=== PATIENT | male | born 1980 | race Caucasian/White ===

== ENCOUNTER 2017-05-04 19:48 | Inpatient (IN) | payer SELFPAY ==
[~2017-05-04] VITALS: Ht 172.7 cm; Wt 126.0 kg
--- NOTE | ~2017-05-04 | HP ---
PATIENT'S NAME: SALVATORE PEMBERTON [facility] AGE: 36 Y [address] ROOM: [place] [address] LOCATION: [facility] [place] ADMIT DATE: 05/04/2017 History & Physical DISCHARGE DATE: FAMILY PHYSICIAN: PHYSICIAN, NO ATTENDING PHYSICIAN: Jesica ANGULO (Wes) DATE OF SERVICE: 05/04/2017 CHIEF COMPLAINT: Left scrotal pain. HISTORY OF PRESENT ILLNESS: Salvatore is a very pleasant 36-year-old gentleman who has had a known left inguinal hernia for quite sometime. It is normally easily reducible with rest and mild pressure, but as of last night, he had sudden onset of pain in that left scrotum and has worsened since that time. The size of his hernia had doubled in size and he was not able to reduce it with his usual maneuvers, he went to outside hospital, he was found to have an incarcerated hernia, and was sent here for further management here. He has already gotten a couple of rounds of pain medications at the outside hospital and he rate his pain at 2/10, but it was much more severe initially. He had a bowel movement yesterday and has been passing flatus easily today. He was able to pee at the outside facility. He denies any associated nausea or vomiting. He denies any previous episodes of incarceration. He denies any recent travel change, dietary habits, or sick contacts. PAST MEDICAL HISTORY: He denies any cardiac, pulmonary, hepatic, renal disease or dysfunction, or history of blood clots or DVTs. He does admit to a previous laparoscopic cholecystectomy and a left shoulder surgery. ALLERGIES: NO KNOWN DRUG ALLERGIES. MEDICATIONS: He takes no chronic medications. FAMILY HISTORY: Noncontributory. SOCIAL HISTORY: He denies tobacco, alcohol use, or abuse. He works in the [employer] and is and his accompanies him here today. REVIEW OF SYSTEMS: PATIENT'S NAME: SALVATORE PEMBERTON [facility] AGE: 36 Y [address] ROOM: [place] [address] LOCATION: [facility] [place] ADMIT DATE: 05/04/2017 History & Physical DISCHARGE DATE: FAMILY PHYSICIAN: PHYSICIAN, NO ATTENDING PHYSICIAN: Jesica ANGULO (Wes) A full 10-point review of systems was discussed with the patient and was negative except for as discussed above. Specifically, he denies any chest pain, shortness of breath, skin lesions, or rashes. PHYSICAL EXAMINATION: GENERAL: A 36-year-old gentleman in no apparent distress. Alert and oriented x3. VITAL SIGNS: Afebrile. Vital signs stable. HEENT: Sclerae anicteric. NECK: Supple. HEART: Rate and rhythm is regular. Breathing is nonlabored. ABDOMEN: Soft, nontender, and nondistended. His left scrotum is quite enlarged and it is tender to deep palpation may perhaps mildly erythematous change on that scrotum, I was able to palpate the right testicle, but I was unable to palpate the left testicle because of the significant amount of bowel that was within it. He is not overtly tender in that area, but with manipulation, he is somewhat tender, I was not able to reduce the hernia despite significant attempt at manipulation. EXTREMITIES: Bilateral lower extremities are warm, brisk capillary refill, without evidence of significant edema. No obvious calf tenderness, swelling, no obvious skin lesions or rashes. RADIOLOGY REVIEW: I reviewed a previous CT scan, he had when he was 1st diagnosed the hernia, and it just showed a left inguinal hernia with some colon in it. We reviewed films today and shows a nonspecific gas pattern and there is good amount of stool in his colon on the abdominal x-rays. No free air obvious. LABORATORY EVALUATION: All pending at this point. ASSESSMENT AND PLAN: A 36-year-old gentleman with left inguinal hernia that appears to be incarcerated, cannot rule out strangulation, but he is not experiencing any signs that would lead me to believe that is the case. We discussed the options including laparoscopic hernia repair versus open hernia repair. I think it is at least worth while giving this a laparoscopic shot as long as we can get everything reduced and all the bowel was healthy and viable, we can go ahead and put a piece of mesh in laparoscopically, and see we get a good amount of morbidity with that approach; and on the other hand, if we are unable to reduce him or he has evidence of ischemic bowel then he will obviously require an open approach to the hernia repair. Also, explained to him that in the case that bowel resection needs to be done, I will not be implanting mesh and the chances of hernia recurrence are significantly higher in the neighborhood of up to 40% to 50% given his obesity without mesh repair. PATIENT'S NAME: SALVATORE PEMBERTON [facility] AGE: 36 Y [address] ROOM: [address] [address] LOCATION: [facility] [place] ADMIT DATE: 05/04/2017 History & Physical DISCHARGE DATE: FAMILY PHYSICIAN: PHYSICIAN, NO ATTENDING PHYSICIAN: Jesica ANGULO (Wes) We discussed risks and benefits of surgery including infection, bleeding, damage to surrounding structures, need for further procedures and surgeries, and recurrence amongst others. He had all his questions answered to his satisfaction and wishes to proceed with laparoscopic possible open hernia repair with possible bowel resection. SHANTI) MD SELINA ANGULO/maame /[id number] D: T: [id number] HISTORY & PHYSICAL
--- NOTE | ~2017-05-04 | CON ---
PATIENT'S NAME: IRIS PEMBERTON [facility] AGE: 36 Y [address] ROOM: [place] [address] [address]: [facility] [place] ADMIT DATE: 05/04/2017 Consultation DISCHARGE DATE: FAMILY PHYSICIAN: PHYSICIAN, NO ATTENDING PHYSICIAN: Jesica ANGULO) DATE OF CONSULTATION: 05/05/2017 REFERRING PHYSICIAN: ALEKSANDAR CHU MD CHIEF COMPLAINT: Intraoperative consultation. HISTORY OF PRESENT ILLNESS: The patient is a 36-year-old male with history of incarcerated left inguinal hernia. He was undergoing repair this evening by General Surgery. General Surgery did notice the patient to have paraphimosis with tight foreskin back over his glans which they were unable to retract back over the glans. The patient was also noted to have meatal stenosis and they were unable to place a catheter including a 12-Lao Pretty catheter. The patient was already under anesthesia at the time of the consultation. I did call out and speak with the patient's regarding his history, and she did report that she believes he is uncircumcised and has not had any previous surgery or procedures on his urethra or penis. Apparently, he did have some difficulty with penile pain starting this morning. The reports that he did pull the foreskin back over his glans earlier this morning and was having some difficulty in retracting the foreskin back over the glans. The patient's is unsure if the patient has had any difficulty with voiding or gross hematuria or any history of urinary tract infection. PAST MEDICAL HISTORY: 1. Incarcerated left inguinal hernia. 2. Obesity. PAST SURGICAL HISTORY: 1. Laparoscopic cholecystectomy. 2. Shoulder surgery. FAMILY HISTORY: No reported family history of genitourinary abnormalities. SOCIAL HISTORY: The patient denies any alcohol or tobacco use. 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 ALLERGIES: PATIENT'S NAME: IRIS PEMBERTON [facility] AGE: 36 Y [address] ROOM: [place] [address] LOCATION: [facility] [place] ADMIT DATE: 05/04/2017 Consultation DISCHARGE DATE: FAMILY PHYSICIAN: PHYSICIAN, NO ATTENDING PHYSICIAN: Jesica ANGULO) NO KNOWN DRUG ALLERGIES. MEDICATIONS: See hospitalization medication reconciliation. REVIEW OF SYSTEMS: Was unable to review given the patient was under anesthesia. PHYSICAL EXAM: VITAL SIGNS: Stable. CONSTITUTIONAL: The patient is in no acute distress and he was sedated and intubated at the time of my examination. ABDOMEN: Obese, soft. The patient did still have an open inguinal incision as General Surgery is still working on his inguinal hernia at the time of consultation. GENITOURINARY: Paraphimosis with significant edema with tight phimotic band back over the glans causing paraphimosis. He did also have some early skin changes with some ecchymosis or bruising, possible necrosis along the area of tight phimotic band. His meatus was quite stenotic. His testicles were palpably normal. PSYCHIATRIC: The patient is sedated and intubated. NEUROLOGIC: Unable to assess. IMPRESSION: 1. Paraphimosis. 2. Meatal stenosis. PLAN: Again, I called out to the to discuss my findings for this intraoperative consult. Given his significant paraphimosis, I did recommend reducing the paraphimosis as well as placing a Pretty catheter and dilating his meatal stenosis for which they could not get a catheter in. The patient's did consent freely for the patient. I did explain the risks, benefits, indications, and alternatives. ALEKSANDAR CHU MD GP/maame /[id number] d: 05/05/17 0259 t: 05/07/17 1829, CONSULTATION REPORT
--- NOTE | ~2017-05-04 | DS ---
PATIENT'S NAME: SALVATORE PEMBERTON [facility] AGE: 36 Y [address] ROOM: [facility] [place] [place] [address] LOCATION: [facility] [place] ADMIT DATE: 05/04/2017 Discharge Summary DISCHARGE DATE: 05/06/2017 FAMILY PHYSICIAN: PHYSICIAN, NO ATTENDING PHYSICIAN: Jesica ANGULO (Wes) FINAL DIAGNOSES: Left inguinal hernia. Paraphimosis. Ureteral strictures. HOSPITAL COURSE: Salvatore was admitted on 05/04/2017 with 1-day history of left groin pain and some penile pain. He was found to have an incarcerated sigmoid hernia, went to the operating room, and underwent a left inguinal hernia repair via an open approach to the left groin with mesh. At that time, he was found also to have paraphimosis and ureteral strictures and Dr. Pardo was consulted intraoperatively for reduction of the paraphimosis and cystoscopy where multiple ureteral strictures were noted. A Pretty was placed, was left in place, and he will follow up with Dr. Pardo as an outpatient to further manage these issues. Postoperatively, he did quite well. Had minimal pain, well controlled with p.o. pain medication. His wounds were healing nicely. He was ambulating independently and tolerating a diet and passing flatus, and he was ready for discharge on 05/06/2017. He will follow up with the [facility], and he was given appropriate followup and discharge instructions. He is aware that he is not supposed to be lifting anything greater than 10 pounds for the next six weeks. MD SELINA HAYWOOD (JAKE)/maame /[id number] d: t: 05/06/17 0513, DISCHARGE SUMMARY
--- NOTE | ~2017-05-04 | OR ---
PATIENT'S NAME: IRIS PEMBERTON [facility] AGE: 36 Y [address] ROOM: [place] [address] LOCATION: [facility] [place] ADMIT DATE: 05/04/2017 OR/Procedure Report DISCHARGE DATE: FAMILY PHYSICIAN: PHYSICIAN, NO ATTENDING PHYSICIAN: Jesica ASCENCIO (Wes) SURGEON: Jesica Ascencio MD (Jake) SCHEME TECHNICIAN: DATE OF PROCEDURE: 05/04/2017 PREOPERATIVE DIAGNOSIS: Left inguinal hernia, incarcerated. POSTOPERATIVE DIAGNOSES: 1. Left inguinal hernia, incarcerated. 2. Paraphimosis. 3. Ureteral stricture. SURGEONS: Jesica Ascencio MD (Jake) and Shahid Pardo MD. Please see Dr. Pardo's dictation for his portion of the case. PROCEDURE PERFORMED: 1. Diagnostic laparoscopy. 2. Left inguinal open hernia repair with large plug and patch mesh. FINDINGS: 1. Left incarcerated, but not strangulated inguinal hernia that contained the entire sigmoid colon. 2. Paraphimosis. 3. Ureteral strictures. INDICATIONS FOR PROCEDURE: This is a 36-year-old gentleman, who has had a known left inguinal hernia for quite some time and had a 1-day onset of severe left scrotal pain, presents here today. PQRI: A single gram of Invanz IV was given within 1 hour prior to surgery as a single dose only. SCDs were placed on prior to the case and were on throughout. Lovenox 40 mg subcu was given prior to the case. DETAILS OF PROCEDURE: After informed consent was obtained, the patient was brought to the operating room and placed in supine position. Both arms were tucked. All pressure points were padded. General endotracheal anesthesia was induced. When we examined the penis, he appeared to have a paraphimosis and we were unable to completely reduce the penis with the foreskin and we were unable to place a catheter. Thus, we did perform the procedure without a catheter, but called Dr. Pardo at the end of the case to examine the patient. Please see his dictation for further details. PATIENT'S NAME: IRIS PEMBERTON [facility] AGE: 36 Y [address] ROOM: [place] [address] LOCATION: [facility] [place] ADMIT DATE: 05/04/2017 OR/Procedure Report DISCHARGE DATE: FAMILY PHYSICIAN: PHYSICIAN, NO ATTENDING PHYSICIAN: Jesica ASCENCIO (Wes) The abdomen and scrotum were prepped and draped in usual sterile fashion. A supraumbilical 5-mm incision was made after 0.5% Marcaine with epi was introduced into the wound. A 5-mm bladeless trocar introduced into the abdominal cavity under direct visualization with Optiview port by 5-mm 0- degree scope. Pneumoperitoneum was achieved. Abdominal cavity was inspected. No other abnormalities were noted. The patient was placed in reverse Trendelenburg position. Additional left lateral and right lateral 5 mm trocars introduced in the same fashion as above under direct visualization from the laparoscope. The left groin was examined and was noted to have herniated colon and we attempted to start reducing this colon with both manual external pressure and gentle pulling with an atraumatic grasper. We were able to reduce a little bit of the colon, but we were unable to reduce the entire colon and does not think this is going to be doable from a laparoscopic approach. The right and left trocars were removed under direct visualization with the laparoscope. No bleeding could be noted. Pneumoperitoneum was decompressed. Last trocar was removed and all wounds were closed with 4-0 Monocryl subcuticular suture. Our attention was then diverted towards the left groin. A 3-inch incision was made overlying and parallel to 1 cm above the medial third of the inguinal ligament. Dissection down to subcutaneous tissue and Ronald's carried out with Bovie and electrocautery. The hernia sac was identified. This was quite large. The cord structures off the surrounding tissues were started to be performed. We were able to get down to the external oblique. We opened this up laterally with the blade and then incised this laterally through the external ring with Metzenbaum scissors taking great care not to injure the underlying ilioinguinal nerve. The entire sac was freed up from the surrounding soft tissues. This was quite difficult to reduce from the scrotum. We were able to finally with both external and internal pressure deliver this from the scrotum. With blunt and burst of electrocautery, we were able to separate the sac off the cord structures. The vas was inspected and it was noted to be intact throughout and the cord structures were patent and unharmed. The hernia sac had to be opened in order to successfully achieve this. The entire sigmoid colon was found to be in the hernia sac that was completely viable. We were even able to deliver a little bit more colon so that we could inspect some of the colon that we had pulled out earlier and no injury to the colon or ischemia was noted. We then very slowly reduced this sigmoid colon back in the abdominal cavity. This was quite difficult to do, but we were able to do so with gentle pressure. Once this was completely freed up and the hernia sac was completely freed up from the surrounding soft tissues, the hernia sac was ligated at its base and oversewn with 0 Vicryl suture taking great care not to injure any intraperitoneal structures. Once this was done and hemostasis was ensured, this was allowed to retract back into the peritoneal cavity. The cord structures were inspected and was noted PATIENT'S NAME: IRIS PEMBERTON [facility] AGE: 36 Y [address] ROOM: [address] [address] LOCATION: [facility] [place] ADMIT DATE: 05/04/2017 OR/Procedure Report DISCHARGE DATE: FAMILY PHYSICIAN: PHYSICIAN, NO ATTENDING PHYSICIAN: Jesica ASCENCIO) to be unharmed and replaced back in their natural position. At this point it was the first time we were actually able to find the ilioinguinal nerve and it was actually up and away from our dissection. It was unharmed along its entire course. This was not freed from the surrounding soft tissues and swept up superiorly. The hernia was an indirect inguinal hernia. No direct space component could be identified. A large plug and patch was elected and placed into the defect and secured in. The plug was secured in 3 locations superiorly to the anterior abdominal wall and inferiorly at the inguinal ligament and superolaterally to the anterior abdominal wall. There was just enough room for the cord structures fit on the medial aspect of this comfortably. The overlying patch had a slit cut in the middle of it to allow for the cord structures and the ilioinguinal nerve. The mesh was placed around those structures. This was secured to the pubic tubercle with 0 Vicryl suture in a running fashion along the anterior abdominal wall all the way at 2 cm lateral to the indirect defect. An additional 0 Vicryl suture was then used to secure the inferior edge of the patch from the pubic tubercle medially to the inguinal ligament all the way at 2 cm lateral to the direct space defect. The slit in the mesh was then reapproximated to itself on the lateral aspect of the cord structures allowing just enough room for some swelling at the tip of the finger to fit next to it to allow for little bit of swelling of the cord structures. We thoroughly irrigated the wound with saline. Hemostasis was ensured. The external oblique was reapproximated with 0 Vicryl suture. The Ronald's fascia was reapproximated with 2-0 Vicryl suture. A subcutaneous layer with running 3-0 Vicryl suture was performed and then a 4-0 Monocryl subcuticular layer was again used for closure and sterile dressing was applied. At this point, Dr. Pardo came in and performed his portion of the procedure. Please see his dictation for further details. The patient tolerated the procedure well without any complication. MD SELINA HAYWOOD (JAKE)/maame /[id number] d: t: 05/05/17 0314, OPERATIVE SUMMARY
--- NOTE | ~2017-05-04 | OR ---
PATIENT'S NAME: IRIS PEMBERTON AGE: 36 Y [address] ROOM: [place] [address] LOCATION: [facility] [place] ADMIT DATE: 05/04/2017 OR/Procedure Report DISCHARGE DATE: FAMILY PHYSICIAN: PHYSICIAN, NO ATTENDING PHYSICIAN: Jesica ASCENCIO (Wes) SURGEON: Aleksandar Pardo MD SIGN MAKER: None. DATE OF PROCEDURE: 05/05/2017 PREOPERATIVE DIAGNOSES: 1. Paraphimosis. 2. Meatal stenosis. POSTOPERATIVE DIAGNOSES: 1. Paraphimosis. 2. Meatal stenosis. 3. Anterior urethral stricture disease. OPERATIVE PROCEDURES: 1. Cystourethroscopy. 2. Urethral dilation. 3. Reduction of paraphimosis. INDICATIONS FOR PROCEDURE: The patient is a 36-year-old male, who I was called to evaluate intraoperatively. He was already under anesthesia for repair of an incarcerated inguinal hernia. The staff was having trouble getting a catheter placed and he was also noted to have possible paraphimosis. I did discuss these findings with the patient's and she wished for us to proceed with reduction of his paraphimosis and cystoscopy with urethral dilation and catheter placement. DESCRIPTION OF OPERATION: The patient was already under anesthesia at the time I was called to the operating room. He was already prepped and draped in the usual sterile fashion and had received a perioperative antibiotic. I began by carefully reducing his paraphimosis. This tight phimotic band was quite constrictive and there were already some skin changes at the phimotic band. I was able to compress some of the edema out of his glans and shaft and ultimately was successful in reducing his paraphimosis pulling the foreskin and tight phimotic band back over the glans. His meatus was quite stenotic and I began by using male urethral sounds to carefully dilate his meatus up to 24-Spanish in caliber. I then performed flexible cystoscopy and it was immediately apparent that he had cisneros urethral stricture disease with numerous concentric urethral strictures all along his anterior urethra. I was able to pass the 16-Spanish catheter although this was somewhat tight up into his bladder. His posterior urethra was notable for some mild bilobar hyperplasia PATIENT'S NAME: IRIS PEMBERTON AGE: 36 Y [address] ROOM: [address] [address] LOCATION: [facility] [place] ADMIT DATE: 05/04/2017 OR/Procedure Report DISCHARGE DATE: FAMILY PHYSICIAN: PHYSICIAN, NO ATTENDING PHYSICIAN: Jesica ASCENCIO (Wes) of the prostate. His bladder was negative for any bladder tumors, cellules, or diverticula. There was no evidence of any bladder stones. Then through the cystoscope, I advanced a rigid superstiff guidewire into his bladder and removed the cystoscope leaving the wire in place. I attempted placing a 16- Spanish Councill tip catheter over the wire and it was still meeting some resistance and so I used the S curve urethral dilators to dilate up his urethra to 22-Spanish in caliber. After this, I was now able to successfully advance the 16-Spanish Ho-Chunk tip catheter into his bladder with good return of urine and 10 mL of sterile water was placed in the balloon and this was left to gravity drainage. Please see Dr. Ascencio note for the remainder of the his procedure with the left inguinal hernia repair. The patient was then awoken from general anesthesia where he was extubated and transferred to the recovery bed and transported to the recovery room in good condition. COMPLICATIONS: None. ESTIMATED BLOOD LOSS: Less than 10 mL. DRAINS: Indwelling Pretty catheter to gravity drainage. FOLLOWUP PLAN: We will plan to keep the Pretty catheter indwelling at least until May 08 where he can come back to clinic for a nurse visit to have the Pretty catheter removed and then we will plan to see him back for followup in Urology Clinic in 3-4 weeks from now to followup on his urethral stricture disease. ALEKSANDAR PARDO MD GP/modl /[id number] d: 05/05/17 0240 t: 05/07/17 1827, OPERATIVE SUMMARY
--- NOTE | 2017-05-05 02:25 | NUR ---
aDMISSION: PT ADMITTED FROM SURGERY AROUND 0115 AFTER L) INGUINAL HERNIA REPAIR/REDUCTION OF PARAPHINOSIS CYSTO, URETHRAL DIALATION. PT DENIES ANY PAIN ON ADMISSIONS. HTN. NO HOME MEDICATIONS. NKA. NO SIGNIFICANT MEDICAL HX. PER ER PT HAS HAD THIS HERNIA FOR A WHLE BUT HAD INCREASED PAIN YESTERDAY WHICH BROUGHT HIM INTO ER. FROM [place]. HAD BM LAST NIGHT. NO TOBACCO OR ALCOHOL USE. HOLT INTACT DO NOT REMOVE IT WAS PLACED BY DR. CHU. ON 3L WHEEN UP TO FLOOR HAS BEEN WEEN OFF. DIETCL ADV TOLERATED. SL IV WHEN TOLAERATING PO. SCD. ICE TO INCISION PRN. ACTIVITY TOLERATED
--- NOTE | 2017-05-06 04:37 | NUR ---
Significant Event: Patient is alert and oriented x 3. VSS on room air. Up with SBA. Ambulated in the lamar this shift. Lap sites x 3 to abdomen, dressings intact. Dressing to left groin is clean, dry, and intact. Bowel sounds active. Pretty intact, 1600 mls out this shift. Denies any pain. Scheduled IV Toradol given. Left hand IV, saline locked. Had full liquid diet for supper, regular diet for breakfast. Patient is pleasant and cooperative with cares. Follow up: Possible dismissal to home today.
--- NOTE | 2017-05-06 12:37 | NUR ---
D: ORDERS RECEIVED FOR THE PATIENT TO BE DISCHARGED TO HOME. I: DISMISSAL INSTRUCTIONS WERE PREPARED AND REVIEWED WITH THE PATIENT VIRTUALLY. THE FOLLOWING INFORMATION WAS DISCUSSED INCLUDING TAIWO TEACHING PROVIDED: AFTER LAPAROSCOPIC-HERNIA REPAIR, AFTER HERNIA SURGERY, DISCHARGE INSTRUCTION-CARING FOR YOUR INDWELLING URINARY CATHETER, EMPTYING AND CLEANING YOUR URINARY CATHETER BAG, DISCHARGE INSTRUCTIONS-CARING FOR YOUR LEG BAG, NEOSPORIN, NORCO, PREVENTING DVT, HERNIA REPAIR SURGERY, HAVING HERNIA SURGERY-TRADITIONAL REPAIR, INCISION CARE, AND DISCHARGE INSTRUCTIONS CARING FOR YOUR ABDOMINAL INCISION. REVIEWED FOLLOW UP APPOINTMENTS AND NEW PRESCRIPTIONS. R: THE PATIENT VERBALIZED UNDERSTANDING OF THE DISMISSAL EDUCATION AT THE TIME OF TEACHING WITH NO FURTHER QUESTIONS. P: THE ABOVE INFORMATION WAS SHARED WITH THE PRIMARY NURSE AND THE CHARGE NURSE THAT THE DISMISSAL EDUCATION WAS COMPLETED. THE PATIENT IS READY FOR DISCHARGED TO THE FRONT DOOR VIA WHEEL CHAIR BY NURSING STAFF WHEN RIDE IS AVAILABLE.
[2017-05-06] MEDS ORDERED: NEOSPORIN1 PKT TOP (12:45)
[2017-05-06] MEDS ORDERED: NORCO 5-325 TA1 EACH PO (12:50)
--- NOTE | 2017-05-06 15:49 | NUR ---
patient dismissed to home. teaching and new meds and rx slip and catheter/dressing care all reviewed by virtual nurse. to front door with belongings and family to go home.
== END 2017-05-06 14:35 | disposition disaster alternative care site (69) | DRG 345 ==
LOC: GMED 19:48 → GMSU 20:31
PROVIDERS: ADMIT Surgery
PROC: 0DSN0ZZ Reposition Sigmoid Colon, Open Approach (ICD-10-PCS; principal; 2017-05-05)
PROC: 0T9D8ZZ Drainage of Urethra, Via Natural or Artificial Opening Endoscopic (ICD-10-PCS; principal; 2017-05-05)
PROC: 0YU60JZ Supplement Left Inguinal Region with Synthetic Substitute, Open Approach (ICD-10-PCS; principal; 2017-05-05)
PROC: 0YJ64ZZ Inspection of Left Inguinal Region, Percutaneous Endoscopic Approach (ICD-10-PCS; principal; 2017-05-05)
PROC: 0T7D8ZZ Dilation of Urethra, Via Natural or Artificial Opening Endoscopic (ICD-10-PCS; principal; 2017-05-05)
DX: K40.30 Unilateral inguinal hernia, with obstruction, without gangrene, not specified as recurrent (principal); Z68.41 Body mass index [BMI] 40.0-44.9, adult; N35.9 Urethral stricture, unspecified; N47.2 Paraphimosis; E66.9 Obesity, unspecified; Z90.49 Acquired absence of other specified parts of digestive tract
CPT/HCPCS: J1335; J1650; J1885; J2405; J3010; J7030